=== PATIENT | female | born 1990 ===

== ENCOUNTER → 2025-03-12 | Outpatient (CLI) | payer OTHER ==
[2025-03-12 18:32] LABS: Source, Urine Clean Catch
[2025-03-12 18:46] LABS: Red Blood Cells, Urine 0-2 /hpf (0-2)
[2025-03-12 18:49] LABS: U Amphetamine Screen Not Detected; U Barbiturate Screen Not Detected; U Benzodiazapine Screen Not Detected; U Cannabinoids Screen DETECTED; U Cocaine Screen Not Detected; U Methadone Screen Not Detected; U Methamphetamine Screen DETECTED; U Opiates Screen Not Detected; U Phencyclidine Screen Not Detected
[2025-03-12 18:50] LABS: U Buprenorphine Screen Not Detected; U Oxycodone Screen Not Detected
[2025-03-17 13:51] LABS: 11-NOR-9-CARBOXY-THC,URN,QUANT 82 ng/mL
[2025-03-20 08:21] LABS: AMPHETAMINE,URN,QUANT 817 ng/mL; MDA,URN,QUANT <200 ng/mL; MDEA,URN,QUANT <200 ng/mL; MDMA,URN,QUANT <200 ng/mL; METHAMPHETAMINE,URN,QUANT 823 ng/mL; PHENTERMINE,URN,QUANT <200 ng/mL
== END | disposition home or self-care (01) ==
LOC: LAB SHORT 15:30 → LAB 15:30
PROVIDERS: Family Medicine
DX: Z34.81 Encounter for supervision of other normal pregnancy, first trimester (principal)
CPT/HCPCS: 81015; 87086; G0480